=== PATIENT | male | born 1995 | race Hispanic/Latino ===

== ENCOUNTER 2023-11-23 08:25 | Inpatient (IN) | payer SELFPAY ==
[2023-11-23 09:05] LABS: Actual Bicarbonate (HCO3v) 12.2 mEq/L (22-28); Analyzer IN Cardio CS ER; Base Excess -15.1 mEq/L (-2 - +2); Calcium, Ionized (venous) 1.22 mmol/L (1.16-1.32); Chloride (VBG) 101 mmol/L (98-106); Hematocrit-VBG 42 % (42.0-52.0); Hemoglobin (Hb) 14.4 g/dL (13.2-17.3); Potassium (VBG) 3.86 mmol/L (3.70-5.30); Puncture Site Other Site; RapidComm Collect By LAB; Sodium 138 mmol/L (133-146); pH (venous) 7.174 (7.32-7.43)
[2023-11-23 09:24] LABS: #Eosinphils 0.1 10x3/uL (0.0-0.5); #Monocytes 0.2 10x3/uL (0.0-1.1); #Neutrophils 2.4 10x3/uL (1.5-8.4); %Basophils 0.9 % (0.0-2.0); %Eosinophils 2.4 % (0.0-6.0); %Lymphocytes 41.7 % (18.0-47.0); %Monocytes 4.5 % (0.0-10.0); %Neutrophils 50.1 % (40.0-75.0); ALT (SGPT) 28 U/L (8-55); AST (SGOT) 21 U/L (5-34); Albumin 4.3 g/dL (3.5-5.0); Alkaline Phosphatase 112 U/L (40-110); Anion Gap 25 mmol/L (10-20); BUN (Urea Nitrogen) 16 mg/dL (8.9-20.6); Bilirubin, Total 0.7 mg/dL (0.2-1.2); Calc. Creatinine Clearance 0 mL/min (70-130); Calcium 8.7 mg/dL (7.8-10.44); Carbon Dioxide 12 mmol/L (22-29); Chloride 100 mmol/L (98-107); Estimated GFR 98; Globulin 2.7 g/dL (2.4-3.5); Hematocrit 41.2 % (38.8-50.0); Lipase 10 U/L (8-78); Magnesium 1.7 mg/dL (1.6-2.6); Mean Corpuscular Hemoglobin 28.5 pg (27.0-33.0); Mean Corpuscular Volume 83.7 fl (81.2-95.1); Platelet Count 278 10x3/uL (150-450); Potassium 3.8 mmol/L (3.5-5.1); RBC Distribution Width 12.3 % (11.5-14.5); Red Blood Cell (RBC) Count 4.92 10x6/uL (4.32-5.72); Sodium 133 mmol/L (136-145); White Blood Cell (WBC) Count 4.7 10x3/uL (3.5-10.5)
[2023-11-23 09:27] LABS: Troponin I Less than 0.010 ng/mL (< 0.028)
[2023-11-23] MEDS ORDERED: Insulin Regular 300 UNITS/3 ML VIAL ONE (09:45)
[2023-11-23] MEDS ORDERED: INSULIN REGULAR IN 0.9 % NACL 100 UNITS/100 ML BAG ONE (09:45)
[2023-11-23 09:50] LABS: SARS-CoV-2 NAA Rapid Test Not Detected (NotDetected)
[2023-11-23] MEDS ORDERED: NS 0.9% w/ 20 MEQ KCL 1,000 ML ONE (09:57)
[2023-11-23 10:10] LABS: Glucose 434 mg/dL (70-105)
[2023-11-23] MEDS ORDERED: Dextrose 5 %-0.45 % NaCl 1,000 ML IV PRN (10:45)
[2023-11-23] MEDS ORDERED: Electrolyte Replacement Protocol 1 EACH IVPB ONE (10:45)
[2023-11-23] MEDS ORDERED: NS 0.9% w/ 20 MEQ KCL 1,000 ML IV PRN ×2 (10:45)
[2023-11-23] MEDS ORDERED: Sodium Chloride 0.9% 1,000 ML IV PRN ×2 (10:45)
[2023-11-23] MEDS ORDERED: Ondansetron ODT 4 MG TAB PO PRN (10:50)
[2023-11-23] MEDS ORDERED: Calcium Carbonate 500 MG ChewTAB PO PRN (10:50)
[2023-11-23] MEDS ORDERED: Senokot S 8.6-50 MG TAB PO PRN (10:50)
[2023-11-23] MEDS ORDERED: Ondansetron PF 4 MG/2 ML Vial IVP PRN (10:50)
[2023-11-23 11:28] LABS: HIV (1/2) Antibody/Antigen Non-Reactive (NonReactive); HIV 1/2 INDEX 0.08 S/CO (<1.00); Thyroid Stimulating Hormone 0.7849 uIU/mL (0.35-4.94)
[2023-11-23 11:34] LABS: Anion Gap 19 mmol/L (10-20); BUN (Urea Nitrogen) 13 mg/dL (8.9-20.6); Calc. Creatinine Clearance 0 mL/min (70-130); Calcium 8.6 mg/dL (7.8-10.44); Carbon Dioxide 11 mmol/L (22-29); Chloride 109 mmol/L (98-107); Estimated GFR 120; Glucose 271 mg/dL (70-105); Potassium 3.5 mmol/L (3.5-5.1); Sodium 135 mmol/L (136-145)
[2023-11-23] MEDS ORDERED: Dextrose 50% Abboject 50 ML SYRINGE ONE (12:36)
[2023-11-23] MEDS ORDERED: D5 1/2 NS w/20 mEq KCL 1,000 ML ONE (12:37)
[2023-11-23] MEDS ORDERED: INSULIN REGULAR IN 0.9 % NACL 100 UNITS in Premix 1 BAG IVPB SCH (14:15)
[2023-11-23] MEDS: Acetaminophen 325 MG TAB PO PRN ×2 (14:17→20:04)
[2023-11-23] MEDS ORDERED: FLU VACC QS2023-24(6MOS UP)/PF 60 MCG/0.5 ML SYRINGE IM ONE (15:04)
[2023-11-23 15:17] LABS: Anion Gap 14 mmol/L (10-20); BUN (Urea Nitrogen) 10 mg/dL (8.9-20.6); Calc. Creatinine Clearance 109 mL/min (70-130); Calcium 8.3 mg/dL (7.8-10.44); Carbon Dioxide 17 mmol/L (22-29); Chloride 107 mmol/L (98-107); Estimated GFR 121; Glucose 301 mg/dL (70-105); Potassium 3.7 mmol/L (3.5-5.1); Sodium 134 mmol/L (136-145)
[2023-11-23] MEDS: D5 1/2 NS w/20 mEq KCL 1,000 ML IV PRN ×2 (16:25→21:07)
[2023-11-23 16:38] LABS: Hemoglobin A1c Greater than 14.0 % (4.0-6.0)
[2023-11-23 19:02] LABS: Anion Gap 13 mmol/L (10-20); BUN (Urea Nitrogen) 10 mg/dL (8.9-20.6); Calc. Creatinine Clearance 119 mL/min (70-130); Calcium 8.7 mg/dL (7.8-10.44); Carbon Dioxide 20 mmol/L (22-29); Chloride 106 mmol/L (98-107); Estimated GFR 125; Glucose 196 mg/dL (70-105); Potassium 3.4 mmol/L (3.5-5.1); Sodium 136 mmol/L (136-145)
[2023-11-23] MEDS: Dextrose 50% Abboject 50 ML SYRINGE SLOW IVP PRN (21:10)
[2023-11-24] MEDS: D5 1/2 NS w/20 mEq KCL 1,000 ML IV PRN ×3 (00:40→08:43)
[2023-11-24] MEDS: Dextrose 50% Abboject 50 ML SYRINGE SLOW IVP PRN ×2 (02:15→06:35)
[2023-11-24 03:12] LABS: Anion Gap 13 mmol/L (10-20); BUN (Urea Nitrogen) 9 mg/dL (8.9-20.6); Calc. Creatinine Clearance 125 mL/min (70-130); Calcium 8.3 mg/dL (7.8-10.44); Carbon Dioxide 16 mmol/L (22-29); Chloride 109 mmol/L (98-107); Estimated GFR 127; Glucose 284 mg/dL (70-105); Potassium 3.2 mmol/L (3.5-5.1); Sodium 135 mmol/L (136-145)
[2023-11-24] MEDS ORDERED: Glucagon 1 MG/ML KIT IM PRN (08:25)
[2023-11-24] MEDS ORDERED: Dextrose 5% in Water 1,000 ML IV PRN (08:25)
[2023-11-24] MEDS ORDERED: Dextrose 50% Abboject 50 ML SYRINGE SLOW IVP PRN (08:25)
[2023-11-24] MEDS ORDERED: Electrolyte Replacement Protocol IVPB PRN (08:36)
[2023-11-24] MEDS: Enoxaparin 40 MG (0.4 mL) SYRINGE SC SCH (08:42)
[2023-11-24] MEDS ORDERED: HumuLIN 70/30 (300 UNITS/3 ML VIAL) SC SCH ×2 (09:00→21:00)
[2023-11-24 09:36] VITALS: BMI 19.6
[2023-11-24] MEDS ORDERED: Potassium Chloride 20 MEQ TAB PO SCH (09:45)
[2023-11-24] MEDS ORDERED: Magnesium 2 GM/50 ML(in water) 2 GM in Premix 1 BAG IVPB SCH (09:45)
[2023-11-24] MEDS: HumaLOG 300 UNITS/3 ML VIAL SC PRN ×3 (11:49→21:39)
[2023-11-24 15:10] LABS: Potassium 3.8 mmol/L (3.5-5.1)
[2023-11-25 06:28] LABS: Anion Gap 16 mmol/L (10-20); BUN (Urea Nitrogen) 10 mg/dL (8.9-20.6); Calc. Creatinine Clearance 136 mL/min (70-130); Calcium 9.3 mg/dL (7.8-10.44); Carbon Dioxide 23 mmol/L (22-29); Chloride 105 mmol/L (98-107); Estimated GFR 129; Glucose 136 mg/dL (70-105); Magnesium 1.8 mg/dL (1.6-2.6); Potassium 3.9 mmol/L (3.5-5.1); Sodium 140 mmol/L (136-145)
[2023-11-25 06:29] LABS: Phosphorus 4.7 mg/dL (2.3-4.7)
[2023-11-25] MEDS ORDERED: Potassium Chloride 20 MEQ TAB PO SCH (08:00)
[2023-11-25] MEDS ORDERED: Magnesium 2 GM/50 ML(in water) 2 GM in Premix 1 BAG IVPB SCH (09:00)
[2023-11-25] MEDS ORDERED: HumuLIN 70/30 (300 UNITS/3 ML VIAL) SC SCH ×2 (09:00→11:30)
[2023-11-25] MEDS ORDERED: FLU VACC QS2023-24(6MOS UP)/PF 60 MCG/0.5 ML SYRINGE IM ONE (09:00)
[2023-11-25] MEDS: Enoxaparin 40 MG (0.4 mL) SYRINGE SC SCH (09:39)
[2023-11-25 12:48] VITALS: BP 100/63; TEMP 98.2
== END 2023-11-25 14:00 | disposition home or self-care (01) | DRG 639 ==
LOC: CSHERS 08:25 → CSHIMCU 09:59 → CSHTELE 11-24 18:50
PROVIDERS: ADMIT Internal Medicine; ATTEND Internal Medicine
PROC: 4A043R1 Measurement of Venous Saturation, Peripheral, Percutaneous Approach (ICD-10-PCS; principal; 2023-11-23)
DX: E11.10 Type 2 diabetes mellitus with ketoacidosis without coma (principal); I10 Essential (primary) hypertension; Z87.891 Personal history of nicotine dependence; Z11.52 Encounter for screening for COVID-19; E87.6 Hypokalemia; Z79.899 Other long term (current) drug therapy; E86.0 Dehydration; E86.1 Hypovolemia; Z79.4 Long term (current) use of insulin
CPT/HCPCS: 36415; 36416; 71045; 80048; 80053; 82010; 82805; 83036; 83605; 83690; 83735; 83880; 84100; 84443; 84484; 85025; 87389; 90471; 90686; 96374; 96375; G0008; J1650; J1815; J3475; J3480; J7999

== ENCOUNTER 2023-12-04 07:39 | Emergency (ER) | payer SELFPAY ==
[2023-12-04 09:08] LABS: #Eosinphils 0.2 10x3/uL (0.0-0.5); #Monocytes 0.4 10x3/uL (0.0-1.1); #Neutrophils 2.3 10x3/uL (1.5-8.4); %Basophils 0.9 % (0.0-2.0); %Eosinophils 3.9 % (0.0-6.0); %Monocytes 8.8 % (0.0-10.0); %Neutrophils 49.2 % (40.0-75.0); Hematocrit 41.9 % (38.8-50.0); Mean Corpuscular HGB CONC 33.4 g/dL (32.0-36.0); Mean Corpuscular Hemoglobin 27.9 pg (27.0-33.0); Mean Corpuscular Volume 83.6 fl (81.2-95.1); Mean Platelet Volume 9.9 fl (7.4-10.4); Platelet Count 325 10x3/uL (150-450); RBC Distribution Width 12.8 % (11.5-14.5); Red Blood Cell (RBC) Count 5.01 10x6/uL (4.32-5.72); White Blood Cell (WBC) Count 4.6 10x3/uL (3.5-10.5)
[2023-12-04 09:45] LABS: Actual Bicarbonate (HCO3v) 23.8 mEq/L (22-28); Analyzer IN Cardio CS ER; Base Excess -0.3 mEq/L (-2 - +2); Chloride (VBG) 103 mmol/L (98-106); Hematocrit-VBG 41 % (42.0-52.0); Potassium (VBG) 3.32 mmol/L (3.70-5.30); Puncture Site Other Site; RapidComm Collect By LAB; Sodium 137 mmol/L (133-146); pH (venous) 7.422 (7.32-7.43)
[2023-12-04 09:49] LABS: Phosphorus 4.7 mg/dL (2.3-4.7)
[2023-12-04 09:51] LABS: ALT (SGPT) 48 U/L (8-55); AST (SGOT) 48 U/L (5-34); Albumin 4.7 g/dL (3.5-5.0); Alkaline Phosphatase 150 U/L (40-110); Anion Gap 17 mmol/L (10-20); BUN (Urea Nitrogen) 25 mg/dL (8.9-20.6); Bilirubin, Total 0.5 mg/dL (0.2-1.2); Calc. Creatinine Clearance 0 mL/min (70-130); Carbon Dioxide 22 mmol/L (22-29); Chloride 100 mmol/L (98-107); Estimated GFR 121; Globulin 2.6 g/dL (2.4-3.5); Glucose 368 mg/dL (70-105); Magnesium 2.1 mg/dL (1.6-2.6); Potassium 3.9 mmol/L (3.5-5.1); Protein, Total 7.3 g/dL (6.0-8.3); Sodium 135 mmol/L (136-145)
== END 2023-12-04 10:30 | disposition home or self-care (01) ==
LOC: CSHERS 07:39
DX: E10.65 Type 1 diabetes mellitus with hyperglycemia (principal); I10 Essential (primary) hypertension; Z55.6 Problems related to health literacy
CPT/HCPCS: 36415; 36416; 80053; 82010; 82805; 83735; 84100; 85025; 99283

== ENCOUNTER 2024-10-02 12:55 | Inpatient (IN) | payer SELFPAY ==
[~2024-10-02 12:55] MED LIST: Iopamidol 300 61% 100 ML VIAL FS ONE
[2024-10-02 13:44] LABS: #Basophils 0.03 10x3/uL (0.0-0.2); #Eosinophils 0.02 10x3/uL (0.0-0.5); #Monocytes 0.56 10x3/uL (0.0-1.1); #Neutrophils 3.79 10x3/uL (1.5-8.4); %Basophils 0.6 % (0.0-2.0); %Eosinophils 0.4 % (0.0-6.0); %Lymphocytes 16.1 % (18.0-47.0); %Monocytes 10.6 % (0.0-10.0); %Neutrophils 71.9 % (40.0-75.0); Hematocrit 43.8 % (38.8-50.0); Mean Corpuscular HGB CONC 34.2 g/dL (32.0-36.0); Mean Corpuscular Hemoglobin 28.1 pg (27.0-33.0); Mean Platelet Volume 8.9 fL (7.4-10.4); Platelet Count 145 10x3/uL (150-450); RBC Distribution Width 15.7 % (11.5-14.5); Red Blood Cell (RBC) Count 5.34 10x6/uL (4.32-5.72); White Blood Cell (WBC) Count 5.3 10x3/uL (3.5-10.5)
[2024-10-02 13:57] LABS: ALT (SGPT) 141 U/L (8-55); AST (SGOT) 125 U/L (5-34); Albumin 3.4 g/dL (3.5-5.0); Alkaline Phosphatase 215 U/L (40-110); Anion Gap 29 mmol/L (10-20); BUN (Urea Nitrogen) 12 mg/dL (8.9-20.6); Bilirubin, Total 0.6 mg/dL (0.2-1.2); Calc. Creatinine Clearance 0 mL/min (70-130); Calcium 8.3 mg/dL (7.8-10.44); Carbon Dioxide 15 mmol/L (22-29); Chloride 90 mmol/L (98-107); Estimated GFR 119; Globulin 3.8 g/dL (2.4-3.5); Glucose 338 mg/dL (70-105); Lipase 177 U/L (8-78); Magnesium 2.2 mg/dL (1.6-2.6); Phosphorus 2.4 mg/dL (2.3-4.7); Potassium 3.7 mmol/L (3.5-5.1); Protein, Total 7.2 g/dL (6.0-8.3); Sodium 130 mmol/L (136-145)
[2024-10-02 13:59] LABS: Troponin I Less than 0.010 ng/mL (< 0.028)
[2024-10-02 14:24] LABS: Analyzer IN Cardio CS ER; Base Excess -9.3 mEq/L (-2 - +2); Calcium, Ionized (venous) 1.02 mmol/L (1.16-1.32); Chloride (VBG) 93 mmol/L (98-106); Hematocrit-VBG 43 % (42.0-52.0); Hemoglobin (Hb) 14.7 g/dL (13.2-17.3); Potassium (VBG) 3.46 mmol/L (3.70-5.30); Puncture Site Other Site; RapidComm Collect By lab; Sodium 134 mmol/L (133-146)
[2024-10-02] MEDS ORDERED: NS 0.9% w/ 20 MEQ KCL 1,000 ML ONE (15:18)
[2024-10-02] MEDS ORDERED: Insulin Regular, Human 100 UNIT/ML 10 ML VIAL ONE (15:19)
[2024-10-02] MEDS ORDERED: INSULIN REGULAR IN 0.9 % NACL 100 ML ONE (15:20)
[2024-10-02] MEDS ORDERED: Sodium Chloride 0.9% 1,000 ML IV PRN ×4 (15:33)
[2024-10-02] MEDS ORDERED: Electrolyte Replacement Protocol 1 EACH IVPB PRN (15:33)
[2024-10-02] MEDS ORDERED: NS 0.9% w/ 20 MEQ KCL 1,000 ML IV PRN ×2 (15:33)
[2024-10-02] MEDS ORDERED: Ondansetron ODT 4 MG TAB PO PRN (15:35)
[2024-10-02] MEDS ORDERED: INSULIN REGULAR IN 0.9 % NACL 100 ML IVPB SCH (15:45)
[2024-10-02 16:23] LABS: Anion Gap 25 mmol/L (10-20); BUN (Urea Nitrogen) 14 mg/dL (8.9-20.6); Calc. Creatinine Clearance 0 mL/min (70-130); Calcium 7.6 mg/dL (7.8-10.44); Carbon Dioxide 12 mmol/L (22-29); Chloride 97 mmol/L (98-107); Estimated GFR 125; Glucose 249 mg/dL (70-105); Potassium 3.2 mmol/L (3.5-5.1); Sodium 131 mmol/L (136-145)
[2024-10-02 17:34] VITALS: BMI 29.2
[2024-10-02 18:17] LABS: Hematocrit 38.5 % (38.8-50.0); Hemoglobin 13.4 g/dL (13.5-17.5)
[2024-10-02] MEDS: Ondansetron PF 4 MG/2 ML Vial IVP PRN (18:43)
[2024-10-02] MEDS: Dextrose 50% Abboject 50 ML SYRINGE SLOW IVP PRN (19:39)
[2024-10-02] MEDS: Dextrose 5 %-0.45 % NaCl 1,000 ML IV PRN (19:42)
[2024-10-02 20:06] LABS: Anion Gap 22 mmol/L (10-20); BUN (Urea Nitrogen) 12 mg/dL (8.9-20.6); Calc. Creatinine Clearance 136 mL/min (70-130); Calcium 7.8 mg/dL (7.8-10.44); Carbon Dioxide 16 mmol/L (22-29); Chloride 101 mmol/L (98-107); Estimated GFR 124; Sodium 136 mmol/L (136-145)
[2024-10-02 20:38] LABS: Critical Call Chemistry NUR.TL5 AT 2038; Glucose 51 mg/dL (70-105); Potassium 2.5 mmol/L (3.5-5.1)
[2024-10-02 20:42] LABS: Bilirubin Neg (Negative); Blood, Urine 25 (Negative); Clarity Clear (Clear); Glucose, Urine (Dipstick) >=1000 mg/dL (Negative); Ketone, Urine 150 mg/dL (Negative); Leukocyte Negative (Negative); Nitrite Negative (Negative); Protein, Urine (Dipstick) 100 mg/dl (Neg-Trace); Specific Gravity, Urine 1.015 (1.005-1.030); Urobilinogen Normal mg/dL (Less than 2)
[2024-10-02 20:52] LABS: Amphetamine Not Detected (NotDetected); Barbiturates Screen Not Detected (NotDetected); Benzodiazepine Screen Not Detected (NotDetected); Cocaine Metabolite Screen Not Detected (NotDetected); Methadone Not Detected (NotDetected); Methamphetamine Not Detected (NotDetected); Opiate Screen Not Detected (NotDetected); Oxycodone Screen Not Detected (NotDetected); Phencyclidine (PCP) Not Detected (NotDetected); THC/Cannabinoid Screen Not Detected (NotDetected); Tricyclic Screen Not Detected (NotDetected)
[2024-10-02 21:13] LABS: Bacteria/HPF Rare-Few HPF (None Seen); CAUTI Indications for Culture Pelvic or flank pain; Squamous Epithelial 0-3 HPF (0-3); WBC/HPF 0-3 HPF (0-3)
[2024-10-02 21:14] LABS: RBC/HPF 0-3 HPF (0-3)
[2024-10-02 21:15] LABS: Urine Culture Reflex No No
[2024-10-02] MEDS: Potassium Chloride 20 MEQ TAB PO SCH (21:31)
[2024-10-02] MEDS: Multivit, Therapeutic 1 TAB PO SCH (21:33)
[2024-10-02] MEDS: traMADol HCl 50 MG TAB PO PRN (21:33)
[2024-10-02] MEDS: Folic Acid 1 MG TAB PO SCH (21:33)
[2024-10-02] MEDS: Thiamine HCl 200 MG/2 ML VIAL SLOW IVP SCH (21:36)
[2024-10-02] MEDS: Pantoprazole 40 MG VIAL IVP SCH (23:40)
[2024-10-02] MEDS: D5 1/2 NS w/20 mEq KCL 1,000 ML IV PRN (23:41)
[2024-10-03] MEDS: Pantoprazole 40 MG VIAL IVP SCH ×2 (00:02→08:49)
[2024-10-03 00:09] LABS: Anion Gap 17 mmol/L (10-20); BUN (Urea Nitrogen) 10 mg/dL (8.9-20.6); Calc. Creatinine Clearance 142 mL/min (70-130); Calcium 7.6 mg/dL (7.8-10.44); Carbon Dioxide 20 mmol/L (22-29); Chloride 101 mmol/L (98-107); Estimated GFR 126; Glucose 112 mg/dL (70-105); Sodium 135 mmol/L (136-145)
[2024-10-03 03:01] LABS: #Basophils 0.04 10x3/uL (0.0-0.2); #Eosinophils 0.05 10x3/uL (0.0-0.5); #Monocytes 0.75 10x3/uL (0.0-1.1); #Neutrophils 3.55 10x3/uL (1.5-8.4); %Basophils 0.8 % (0.0-2.0); %Eosinophils 0.9 % (0.0-6.0); %Monocytes 14.2 % (0.0-10.0); %Neutrophils 66.9 % (40.0-75.0); Hematocrit 39.6 % (38.8-50.0); Hemoglobin 13.8 g/dL (13.5-17.5); Mean Corpuscular HGB CONC 34.8 g/dL (32.0-36.0); Mean Corpuscular Hemoglobin 28.5 pg (27.0-33.0); Mean Corpuscular Volume 81.6 fL (81.2-95.1); Mean Platelet Volume 9.3 fL (7.4-10.4); Platelet Count 155 10x3/uL (150-450); RBC Distribution Width 15.7 % (11.5-14.5); Red Blood Cell (RBC) Count 4.85 10x6/uL (4.32-5.72); White Blood Cell (WBC) Count 5.5 10x3/uL (3.5-10.5)
[2024-10-03] MEDS: Lorazepam 1 MG TAB PO PRN ×2 (03:13→23:16)
[2024-10-03 03:15] LABS: Anion Gap 18 mmol/L (10-20); BUN (Urea Nitrogen) 9 mg/dL (8.9-20.6); Calc. Creatinine Clearance 136 mL/min (70-130); Calcium 7.5 mg/dL (7.8-10.44); Carbon Dioxide 20 mmol/L (22-29); Chloride 99 mmol/L (98-107); Estimated GFR 124; Glucose 170 mg/dL (70-105); Sodium 134 mmol/L (136-145)
[2024-10-03] MEDS: Potassium Chloride 20 MEQ TAB PO SCH (04:52)
[2024-10-03] MEDS: Acetaminophen 325 MG TAB PO PRN (07:10)
[2024-10-03] MEDS: Lantus 1000 UNITS/10 ML VIAL SC SCH (08:45)
[2024-10-03] MEDS: Multivit, Therapeutic 1 TAB PO SCH (08:49)
[2024-10-03] MEDS: Folic Acid 1 MG TAB PO SCH (08:49)
[2024-10-03 10:16] LABS: Hematocrit 41.6 % (38.8-50.0); Hemoglobin 14.6 g/dL (13.5-17.5)
[2024-10-03] MEDS: Sodium Chloride 0.9% 1,000 ML IV SCH (10:52)
[2024-10-03] MEDS ORDERED: Glucagon 1 MG/ML KIT IM PRN (12:55)
[2024-10-03] MEDS ORDERED: Dextrose 5% in Water 1,000 ML IV PRN (12:55)
[2024-10-03] MEDS: Insulin Lispro 100 UNIT/ML 10 ML VIAL SC PRN (17:00)
[2024-10-03] MEDS: Morphine 2 MG/ML VIAL SLOW IVP PRN (17:00)
[2024-10-04 04:43] LABS: Anion Gap 24 mmol/L (10-20); BUN (Urea Nitrogen) 8 mg/dL (8.9-20.6); Calc. Creatinine Clearance 144 mL/min (70-130); Calcium 8.6 mg/dL (7.8-10.44); Carbon Dioxide 14 mmol/L (22-29); Chloride 99 mmol/L (98-107); Estimated GFR 126; Glucose 203 mg/dL (70-105); Potassium 3.1 mmol/L (3.5-5.1); Sodium 134 mmol/L (136-145)
[2024-10-04] MEDS: Potassium Chloride 20 MEQ TAB PO SCH (08:52)
[2024-10-04] MEDS: Lantus 1000 UNITS/10 ML VIAL SC SCH (09:08)
[2024-10-04 10:05] LABS: Phosphorus 1.7 mg/dL (2.3-4.7)
[2024-10-04 12:17] LABS: #Basophils 0.04 10x3/uL (0.0-0.2); #Eosinophils 0.07 10x3/uL (0.0-0.5); #Monocytes 0.57 10x3/uL (0.0-1.1); #Neutrophils 2.37 10x3/uL (1.5-8.4); %Eosinophils 1.8 % (0.0-6.0); %Lymphocytes 20.1 % (18.0-47.0); %Monocytes 14.8 % (0.0-10.0); %Neutrophils 61.8 % (40.0-75.0); Hematocrit 43.5 % (38.8-50.0); Mean Corpuscular HGB CONC 34.5 g/dL (32.0-36.0); Mean Corpuscular Hemoglobin 28.6 pg (27.0-33.0); Platelet Count 164 10x3/uL (150-450); RBC Distribution Width 15.4 % (11.5-14.5); Red Blood Cell (RBC) Count 5.24 10x6/uL (4.32-5.72); White Blood Cell (WBC) Count 3.8 10x3/uL (3.5-10.5)
[2024-10-04] MEDS: Lactated Ringer's 1,000 ML IV SCH (12:30)
[2024-10-04] MEDS: PHOS-NAK 1 PKT PACK PO SCH (12:31)
[2024-10-04] MEDS: Morphine 4 MG/ML VIAL SLOW IVP PRN (12:32)
[2024-10-04 12:46] LABS: ALT (SGPT) 67 U/L (8-55); AST (SGOT) 36 U/L (5-34); Alkaline Phosphatase 142 U/L (40-110); Bilirubin, Direct 0.3 mg/dL (0.1-0.3); Bilirubin, Total 0.7 mg/dL (0.2-1.2); Protein, Total 6.6 g/dL (6.0-8.3)
[2024-10-04] MEDS ORDERED: Lorazepam 1 MG TAB PO PRN (15:35)
[2024-10-04 17:05] LABS: Hemoglobin A1c 10.7 % (4.0-6.0)
[2024-10-05 04:23] LABS: #Basophils 0.03 10x3/uL (0.0-0.2); #Eosinophils 0.13 10x3/uL (0.0-0.5); #Monocytes 0.66 10x3/uL (0.0-1.1); %Basophils 0.7 % (0.0-2.0); %Eosinophils 3.1 % (0.0-6.0); %Lymphocytes 25.9 % (18.0-47.0); %Neutrophils 53.3 % (40.0-75.0); Hematocrit 42.3 % (38.8-50.0); Hemoglobin 14.1 g/dL (13.5-17.5); Mean Corpuscular HGB CONC 33.3 g/dL (32.0-36.0); Mean Corpuscular Hemoglobin 27.5 pg (27.0-33.0); Mean Corpuscular Volume 82.6 fL (81.2-95.1); Mean Platelet Volume 8.6 fL (7.4-10.4); Platelet Count 185 10x3/uL (150-450); RBC Distribution Width 14.9 % (11.5-14.5); Red Blood Cell (RBC) Count 5.12 10x6/uL (4.32-5.72); White Blood Cell (WBC) Count 4.1 10x3/uL (3.5-10.5)
[2024-10-05 04:37] LABS: ALT (SGPT) 59 U/L (8-55); AST (SGOT) 39 U/L (5-34); Alkaline Phosphatase 131 U/L (40-110); Anion Gap 18 mmol/L (10-20); BUN (Urea Nitrogen) 8 mg/dL (8.9-20.6); Bilirubin, Total 0.8 mg/dL (0.2-1.2); Calc. Creatinine Clearance 161 mL/min (70-130); Calcium 8.6 mg/dL (7.8-10.44); Carbon Dioxide 21 mmol/L (22-29); Chloride 99 mmol/L (98-107); Estimated GFR 131; Globulin 3.4 g/dL (2.4-3.5); Glucose 268 mg/dL (70-105); Potassium 3.3 mmol/L (3.5-5.1); Protein, Total 6.4 g/dL (6.0-8.3); Sodium 135 mmol/L (136-145)
[2024-10-05] MEDS: Potassium Chloride 20 MEQ TAB PO SCH (06:03)
[2024-10-05] MEDS: Lantus 1000 UNITS/10 ML VIAL SC SCH (08:42)
[2024-10-05] MEDS ORDERED: Lorazepam 0.5 MG TAB PO PRN (15:35)
[2024-10-05] MEDS: Thiamine 100 MG TAB PO SCH (20:24)
[2024-10-06 04:05] LABS: #Basophils 0.05 10x3/uL (0.0-0.2); #Eosinophils 0.12 10x3/uL (0.0-0.5); #Monocytes 0.71 10x3/uL (0.0-1.1); #Neutrophils 2.38 10x3/uL (1.5-8.4); %Basophils 1.1 % (0.0-2.0); %Eosinophils 2.7 % (0.0-6.0); %Lymphocytes 25.6 % (18.0-47.0); %Monocytes 16.1 % (0.0-10.0); Hematocrit 42.6 % (38.8-50.0); Hemoglobin 14.3 g/dL (13.5-17.5); Mean Corpuscular HGB CONC 33.6 g/dL (32.0-36.0); Mean Corpuscular Hemoglobin 28.2 pg (27.0-33.0); Mean Platelet Volume 8.4 fL (7.4-10.4); Platelet Count 217 10x3/uL (150-450); RBC Distribution Width 15.2 % (11.5-14.5); Red Blood Cell (RBC) Count 5.07 10x6/uL (4.32-5.72); White Blood Cell (WBC) Count 4.4 10x3/uL (3.5-10.5)
[2024-10-06 04:19] LABS: ALT (SGPT) 56 U/L (8-55); AST (SGOT) 46 U/L (5-34); Alkaline Phosphatase 125 U/L (40-110); Anion Gap 16 mmol/L (10-20); BUN (Urea Nitrogen) 9 mg/dL (8.9-20.6); Bilirubin, Total 0.6 mg/dL (0.2-1.2); Calc. Creatinine Clearance 178 mL/min (70-130); Calcium 8.6 mg/dL (7.8-10.44); Carbon Dioxide 23 mmol/L (22-29); Chloride 100 mmol/L (98-107); Estimated GFR 135; Globulin 3.4 g/dL (2.4-3.5); Glucose 217 mg/dL (70-105); Potassium 3.4 mmol/L (3.5-5.1); Protein, Total 6.4 g/dL (6.0-8.3); Sodium 136 mmol/L (136-145)
[2024-10-06] MEDS: Potassium Chloride 20 MEQ TAB PO SCH (08:47)
[2024-10-06] MEDS: Magnesium Oxide 400 MG TAB PO SCH (09:40)
[2024-10-06 11:50] VITALS: BP 118/75; TEMP 97.2
[2024-10-06 14:25] LABS: Potassium 4.2 mmol/L (3.5-5.1)
== END 2024-10-06 13:49 | disposition home or self-care (01) | DRG 438 ==
LOC: CSHERS 12:55 → CSHTELE 15:01
PROVIDERS: ADMIT Internal Medicine; ATTEND Internal Medicine
DX: K85.90 Acute pancreatitis without necrosis or infection, unspecified (principal); E11.10 Type 2 diabetes mellitus with ketoacidosis without coma; E87.1 Hypo-osmolality and hyponatremia; Z59.00 Homelessness unspecified; I10 Essential (primary) hypertension; Z91.013 Allergy to seafood; F10.10 Alcohol abuse, uncomplicated; Y90.6 Blood alcohol level of 120-199 mg/100 ml; E87.6 Hypokalemia; E83.39 Other disorders of phosphorus metabolism
CPT/HCPCS: 36415; 36416; 71045; 74177; 80048; 80053; 80076; 80306; 80307; 81001; 82010; 82805; 83036; 83690; 83735; 84100; 84484; 85025; 93005; 94760; 96374; 96375; J1815; J2272; J2405; J2470; J3411; J3480; J7030; J7042; J7120; J7999